=== PATIENT | female | born 1990 | race Native Hawaiian/Other Pacific Islander ===

== ENCOUNTER 2017-02-10 18:29 | Emergency (ER) | payer OTHER ==
[~2017-02-10] VITALS: Ht 152.4 cm; Wt 61.2 kg
[2017-02-10 18:45] VITALS: TEMP 98.6
[2017-02-10 19:32] LABS: PLATELET COUNT 275 K/uL (152-353)
[2017-02-10 19:40] LABS: SODIUM 138 mmol/L (136-145)
[2017-02-10 20:31] VITALS: BP 128/80
== END 2017-02-10 20:31 | disposition home or self-care (01) ==
LOC: ED 18:29
DX: G43.809 Other migraine, not intractable, without status migrainosus (principal)
CPT/HCPCS: 80053; 85027; 99284; J1100; J1200; J1885; J2405

== ENCOUNTER 2017-02-21 07:56 | Emergency (ER) | payer OTHER | END 2017-02-21 08:10 | disposition home or self-care (01) | LOC: ED 07:56 | DX: K04.7 Periapical abscess without sinus (principal); R11.2 Nausea with vomiting, unspecified | CPT/HCPCS: 99281 ==

== ENCOUNTER 2017-05-01 08:31 | Emergency (ER) | payer OTHER ==
[~2017-05-01] VITALS: Ht 160 cm; Wt 61.7 kg
[2017-05-01 08:35] VITALS: BP 125/82; TEMP 99
== END 2017-05-01 09:30 | disposition home or self-care (01) ==
LOC: ED 08:31
PROC: 3E0T3BZ Introduction of Anesthetic Agent into Peripheral Nerves and Plexi, Percutaneous Approach (ICD-10-PCS; principal; 2017-05-01)
DX: K04.7 Periapical abscess without sinus (principal)
CPT/HCPCS: 96372; 99283; J3490

== ENCOUNTER 2017-05-01 16:16 | Observation (INO) | payer OTHER ==
[~2017-05-01] VITALS: Ht 160 cm; Wt 72.6 kg
[2017-05-01 16:16] VITALS: BP 137/95; TEMP 98.8
[2017-05-01 17:00] LABS: PLATELET COUNT 240 K/uL (152-353)
[2017-05-01 17:18] LABS: POTASSIUM 4.2 mmol/L (3.6-5.2); SODIUM 138 mmol/L (136-145)
[2017-05-01 21:42] VITALS: BP 124/84; TEMP 99; Ht 160 cm; Wt 72.6 kg
[2017-05-02] VITALS: BP 95/63; TEMP 98.5
[2017-05-02 04:00] VITALS: BP 104/67; TEMP 98
[2017-05-02 05:38] LABS: PLATELET COUNT 194 K/uL (152-353)
[2017-05-02 05:50] LABS: POTASSIUM 3.5 mmol/L (3.6-5.2); SODIUM 141 mmol/L (136-145)
[2017-05-02 08:00] VITALS: BP 88/56; TEMP 98.1
[2017-05-02 12:00] VITALS: BP 102/64; TEMP 98.3
[2017-05-02 16:00] VITALS: BP 137/91; TEMP 96.9
[2017-05-02 20:00] VITALS: BP 104/72; TEMP 99.1
[2017-05-03 00:05] VITALS: BP 112/75; TEMP 98.8
[2017-05-03 00:06] LABS: PLATELET COUNT 201 K/uL (152-353)
[2017-05-03 00:16] LABS: POTASSIUM 3.8 mmol/L (3.6-5.2); SODIUM 140 mmol/L (136-145)
[2017-05-03 04:00] VITALS: BP 94/57; TEMP 97.8
[2017-05-03 08:00] VITALS: BP 101/56; TEMP 97.9
[2017-05-03 12:10] VITALS: BP 101/69; TEMP 98.8
[2017-05-03 16:29] VITALS: BP 116/57; TEMP 98.1
[2017-05-03 20:00] VITALS: BP 113/75; TEMP 98.3
[2017-05-04] VITALS: BP 94/54; TEMP 98
[2017-05-04 04:00] VITALS: BP 102/65; TEMP 97.7
[2017-05-04 08:09] VITALS: BP 106/51; TEMP 98
[2017-05-04 08:26] LABS: PLATELET COUNT 233 K/uL (152-353)
[2017-05-04 08:45] LABS: POTASSIUM 3.9 mmol/L (3.6-5.2); SODIUM 141 mmol/L (136-145)
[2017-05-04 12:00] VITALS: BP 114/73; TEMP 98.2
== END 2017-05-04 13:52 | disposition home or self-care (01) ==
LOC: ED 16:16 → MED/SURG 19:27
PROVIDERS: Family Medicine; ADMIT Family Medicine
DX: L03.211 Cellulitis of face (principal); K04.7 Periapical abscess without sinus; K08.89 Other specified disorders of teeth and supporting structures
CPT/HCPCS: 36415; 80048; 80053; 80307; 81025; 83735; 85027; 86140; 87040; 96365; 96366; 96367; 96372; 96374; 96375; 96376; 99220; 99283; 99284; G0378; G0479; J1335; J1885; J2270; J2405; J2930; J3490; S0028

== ENCOUNTER 2019-03-15 11:41 | Emergency (ER) | payer OTHER ==
[~2019-03-15] VITALS: Ht 160 cm; Wt 68.3 kg
[2019-03-15 11:48] VITALS: TEMP 98.2
[2019-03-15 13:44] VITALS: BP 101/61
== END 2019-03-15 13:44 | disposition home or self-care (01) ==
LOC: ED 11:41
DX: L73.8 Other specified follicular disorders (principal)
CPT/HCPCS: 99282

== ENCOUNTER 2020-01-04 16:36 | Outpatient (CLI) | payer OTHER | END 2020-01-04 21:34 | disposition home or self-care (01) | LOC: RAD 16:36 | DX: M79.671 Pain in right foot (principal); T81.89XA Other complications of procedures, not elsewhere classified, initial encounter ==

== ENCOUNTER 2020-09-03 16:26 | Emergency (ER) | payer OTHER ==
[~2020-09-03] VITALS: Ht 162.6 cm; Wt 65.8 kg
[2020-09-03 17:55] LABS: POTASSIUM 4.6 mmol/L (3.6-5.2)
[2020-09-03 18:19] LABS: PLATELET COUNT 312 K/uL (152-353)
[2020-09-03 19:40] VITALS: BP 117/75; TEMP 98.4
== END 2020-09-03 19:40 | disposition home or self-care (01) ==
LOC: ED 16:26
PROVIDERS: Family Medicine
DX: J06.9 Acute upper respiratory infection, unspecified (principal); R05 Cough; B34.9 Viral infection, unspecified; J40 Bronchitis, not specified as acute or chronic; Z20.828 Contact with and (suspected) exposure to other viral communicable diseases; F17.210 Nicotine dependence, cigarettes, uncomplicated
CPT/HCPCS: 80053; 81000; 81025; 85027; 87502; 87635; 87651; 99283; U0003

== ENCOUNTER 2020-10-06 15:45 | Emergency (ER) | payer OTHER ==
[~2020-10-06] VITALS: Ht 162.6 cm; Wt 65.8 kg
[2020-10-06 19:10] VITALS: BP 123/75; TEMP 98.1
== END 2020-10-06 19:10 | disposition home or self-care (01) ==
LOC: ED 15:45
DX: S20.211A Contusion of right front wall of thorax, initial encounter (principal); W11.XXXA Fall on and from ladder, initial encounter; Y92.89 Other specified places as the place of occurrence of the external cause
CPT/HCPCS: 81000; 81025; 96372; 99283; J1885

== ENCOUNTER 2022-09-23 20:06 | Observation (INO) | payer OTHER ==
[~2022-09-23] VITALS: Ht 160 cm; Wt 72.2 kg
[2022-09-23 20:15] VITALS: BP 104/83; TEMP 98.1
[2022-09-23 21:00] VITALS: BP 112/69
[2022-09-23 21:23] LABS: PLATELET COUNT 228 K/uL (152-353)
[2022-09-23 21:30] VITALS: BP 101/67
[2022-09-23 21:33] LABS: POTASSIUM 3.4 mmol/L (3.6-5.2)
[2022-09-23 22:00] VITALS: BP 104/69
[2022-09-23 22:30] VITALS: BP 104/72
[2022-09-23 23:00] VITALS: BP 100/69
[2022-09-24] VITALS (8 sets, daily range): BP systolic 91–110; BP diastolic 56–68; TEMP 97.5–97.9; Ht 160 cm; Wt 72.2 kg
[2022-09-24 05:27] LABS: PLATELET COUNT 194 K/uL (152-353); POTASSIUM 3.5 mmol/L (3.6-5.2)
[2022-09-25] VITALS: BP 117/75; TEMP 98.5
[2022-09-25 04:00] VITALS: BP 87/57; TEMP 98.2
[2022-09-25 08:00] VITALS: BP 102/69; TEMP 98.5
[2022-09-25 09:34] LABS: POTASSIUM 3.8 mmol/L (3.6-5.2)
[2022-09-25 09:41] LABS: PLATELET COUNT 176 K/uL (152-353)
[2022-09-25 12:27] VITALS: BP 107/66; TEMP 98
[2022-09-25 16:00] VITALS: BP 117/79; TEMP 98.2
[2022-09-25 20:09] VITALS: BP 106/65; TEMP 98.4
[2022-09-26] VITALS: BP 106/70; TEMP 98.5
[2022-09-26 04:00] VITALS: BP 102/65; TEMP 98.5
[2022-09-26 04:53] LABS: PLATELET COUNT 220 K/uL (152-353)
[2022-09-26 08:00] VITALS: BP 98/60; TEMP 99.2
[2022-09-26] MEDS ORDERED: LEVO250T2 PO (08:53)
[2022-09-26] MEDS ORDERED: METR250T19 PO (08:53)
[2022-09-26] MEDS ORDERED: HYDR5TAB9 PO (08:56)
== END 2022-09-26 11:25 | disposition home or self-care (01) ==
LOC: ED 20:06 → MED/SURG 23:55
PROVIDERS: Internal Medicine; ADMIT Emergency Medicine Emergency Medical Services; ATTEND Internal Medicine
DX: K52.89 Other specified noninfective gastroenteritis and colitis (principal); K21.9 Gastro-esophageal reflux disease without esophagitis; F41.8 Other specified anxiety disorders; R10.30 Lower abdominal pain, unspecified
CPT/HCPCS: 36415; 80048; 80053; 80307; 81000; 81002; 81025; 85027; 87040; 87490; 87590; 96360; 96361; 96365; 96366; 96367; 96372; 96375; 96376; 99220; 99284; G0378; J1650; J1956; J2270; J2405; J3490

== ENCOUNTER 2023-02-20 12:05 | Emergency (ER) | payer OTHER ==
[~2023-02-20] VITALS: Ht 160 cm; Wt 68.0 kg
[2023-02-20 12:05] VITALS: BP 117/86; TEMP 98.6
[~2023-02-20 12:05] MED LIST: HYDR5TAB9 PO; LEVO250T2 PO; METR250T19 PO
== END 2023-02-20 13:06 | disposition home or self-care (01) ==
LOC: ED 12:05
PROC: 0HQFXZZ Repair Right Hand Skin, External Approach (ICD-10-PCS; principal; 2023-02-20)
DX: S61.011A Laceration without foreign body of right thumb without damage to nail, initial encounter (principal); W26.0XXA Contact with knife, initial encounter; F17.210 Nicotine dependence, cigarettes, uncomplicated; F12.90 Cannabis use, unspecified, uncomplicated
CPT/HCPCS: 90471; 90715; 99283

== ENCOUNTER 2023-03-04 21:04 | Emergency (ER) | payer OTHER ==
[~2023-03-04] VITALS: Ht 160 cm; Wt 67.1 kg
[2023-03-04 21:12] VITALS: BP 119/72; TEMP 98.6
== END 2023-03-04 22:05 | disposition home or self-care (01) ==
LOC: ED 21:04
DX: J02.9 Acute pharyngitis, unspecified (principal); J01.90 Acute sinusitis, unspecified; I10 Essential (primary) hypertension; E11.9 Type 2 diabetes mellitus without complications; F17.290 Nicotine dependence, other tobacco product, uncomplicated
CPT/HCPCS: 99282